=== PATIENT | female | born 1995 | race Caucasian/White ===

== ENCOUNTER 2017-04-03 12:32 | Emergency (ER) | payer MEDICAID, SELFPAY ==
[~2017-04-03] VITALS: Ht 162.6 cm; Wt 64.8 kg
[2017-04-03 12:33] VITALS: BP 113/60
[2017-04-03] MEDS ORDERED: PRENTAB31 PO (14:42)
== END 2017-04-03 14:44 | disposition home or self-care (01) ==
LOC: M ED 12:32
DX: Z32.01 Encounter for pregnancy test, result positive (principal)

== ENCOUNTER → 2017-04-20 | Outpatient (CLI) | payer MEDICAID ==
[~2017-04-20] MED LIST: PRENTAB31 PO; PRENTAB53 PO
[2017-04-20 18:50] LABS: BASO % 0.4 % (0.0-1.0); EOS # 0.2 K/mm3 (0.0-0.50); EOS % 1.7 % (0.0-3.0); LARGE UNSTAINED CELL # 0.1 K/mm3 (0.0-0.4); LARGE UNSTAINED CELL % 1.2 % (0.0-4.0); LYMPH # 2.3 K/mm3 (1.5-6.5); LYMPH % 22.3 % (24.0-44.0); MEAN CORPUSCULAR HEMOGLOBIN 30.6 pg (27.0-33.0); MEAN CORPUSCULAR HGB CONC 34.2 g/dl (32.0-36.5); MEAN CORPUSCULAR VOLUME 89.3 fl (80.0-96.0); MONO # 0.3 K/mm3 (0.0-0.8); MONO % 3.5 % (0.0-5.0); NEUTROPHILS # 6.8 K/mm3 (1.8-7.7); NEUTROPHILS % 70.8 % (36.0-66.0); PLATELET COUNT, AUTOMATED 310 k/mm3 (150-450); RED CELL DISTRIBUTION WIDTH 12.8 % (11.5-14.5); WHITE BLOOD COUNT 9.6 K/mm3 (4.0-10.0)
[2017-04-22 09:51] LABS: HBsAg Prenatal NEGATIVE (NEGATIVE)
== END ==
LOC: M LAB 17:07
PROVIDERS: ATTEND Advanced Practice Midwife
DX: Z34.81 Encounter for supervision of other normal pregnancy, first trimester (principal); Z36 Encounter for antenatal screening of mother

== ENCOUNTER → 2017-04-21 | Outpatient (REF) | payer MEDICAID | LOC: M LABSMT 17:09 | PROVIDERS: ATTEND Advanced Practice Midwife | DX: N91.1 Secondary amenorrhea (principal) ==

== ENCOUNTER → 2017-04-25 | Outpatient (CLI) | payer MEDICAID | LOC: M LAB 16:25 | PROVIDERS: ATTEND Advanced Practice Midwife | DX: N91.1 Secondary amenorrhea (principal) ==

== ENCOUNTER → 2017-04-28 | Outpatient (CLI) | payer MEDICAID | LOC: M LAB 16:37 | PROVIDERS: ATTEND Advanced Practice Midwife | DX: O02.1 Missed abortion (principal) ==

== ENCOUNTER 2017-05-17 23:46 | Emergency (ER) | payer MEDICAID ==
[~2017-05-17] VITALS: Ht 162.6 cm; Wt 61.3 kg
[2017-05-17 23:46] VITALS: BP 116/76
[~2017-05-17 23:46] MED LIST changes: -PRENTAB53 PO
[2017-05-18 02:04] LABS: BASO % 0.3 % (0.0-1.0); EOS # 0.1 K/mm3 (0.0-0.50); EOS % 0.5 % (0.0-3.0); LARGE UNSTAINED CELL # 0.1 K/mm3 (0.0-0.4); LARGE UNSTAINED CELL % 0.9 % (0.0-4.0); LYMPH # 1.9 K/mm3 (1.5-6.5); LYMPH % 17.8 % (24.0-44.0); MEAN CORPUSCULAR HEMOGLOBIN 30.5 pg (27.0-33.0); MEAN CORPUSCULAR VOLUME 89.5 fl (80.0-96.0); MONO # 0.2 K/mm3 (0.0-0.8); MONO % 2.3 % (0.0-5.0); NEUTROPHILS # 8.5 K/mm3 (1.8-7.7); NEUTROPHILS % 78.2 % (36.0-66.0); PLATELET COUNT, AUTOMATED 284 k/mm3 (150-450); RED CELL DISTRIBUTION WIDTH 12.5 % (11.5-14.5); WHITE BLOOD COUNT 10.8 K/mm3 (4.0-10.0)
--- NOTE | 2017-05-18 02:10 | REPUSA ---
CLINICAL HISTORY: Bleeding. TECHNIQUE: Endovaginal ultrasound of the pelvis was performed. FINDINGS: The uterus measures 7.9x3.8x4.6 cm. Thickened endometrium measuring 21 mm. Gestational sac in the lower uterine segment measuring 7.4 mm which corresponds to an estimated gesta tional age of 5 weeks and 3 days. The pole measures 2.2 mm which corresponds to an estimated gestational age of 5 weeks and 5 day s. Absent cardiac activity. The right ovary measures 2.7x2.3x2.6 cm. The left ovary measures 2.7x1.6x2.4 cm. IMPRESSION: demise. The pole in the gestational sac are in the lower uterine segment.
== END 2017-05-18 02:46 | disposition home or self-care (01) ==
LOC: M ED 23:46
DX: O03.4 Incomplete spontaneous abortion without complication (principal); O99.330 Smoking (tobacco) complicating pregnancy, unspecified trimester; Z79.899 Other long term (current) drug therapy

== ENCOUNTER 2017-08-03 11:13 | Emergency (ER) | payer MEDICAID, OTHER ==
[~2017-08-03] VITALS: Ht 162.6 cm; Wt 62.3 kg
[2017-08-03 13:21] LABS: BASO % 0.3 % (0.0-1.0); IMMATURE GRANULOCYTE % 0.4 % (0-0); LYMPH # 0.8 10^3/uL (1.5-6.5); LYMPH % 9.6 % (24.0-44.0); MEAN CORPUSCULAR HEMOGLOBIN 27.9 pg (27.0-33.0); MEAN CORPUSCULAR HGB CONC 32.5 g/dl (32.0-36.5); MEAN CORPUSCULAR VOLUME 85.9 fl (80.0-96.0); MONO # 0.2 10^3/uL (0.0-0.8); MONO % 2.4 % (0.0-5.0); NEUTROPHILS % 87.3 % (36.0-66.0); PLATELET COUNT, AUTOMATED 293 10^3/uL (150-450)
[2017-08-03] MEDS ORDERED: PROMETHAZINE INJ 25 MG/ML VIAL (J2550) IV ONE (13:30)
[2017-08-03] MEDS ORDERED: NS 1,000 ML IV ONE (13:30)
[2017-08-03 13:37] LABS: CONTROL LINE HCG INT CTR LINE PRESENT
[2017-08-03 13:47] LABS: ALBUMIN 4.1 GM/DL (3.2-5.2); ALBUMIN/GLOBULIN RATIO 0.89 (1.00-1.93); ALKALINE PHOSPHATASE 59 U/L (45-117); ALT/SGPT 19 U/L (12-78); ANION GAP 7 MEQ/L (8-16); AST/SGOT 11 U/L (7-37); BILIRUBIN,TOTAL 0.5 MG/DL (0.2-1.0); BLOOD UREA NITROGEN 5 MG/DL (7-18); CALCIUM LEVEL 9.5 MG/DL (8.5-10.1); CARBON DIOXIDE LEVEL 25 MEQ/L (21-32); CHLORIDE LEVEL 104 MEQ/L (98-107); CREATININE FOR GFR 0.56 MG/DL (0.55-1.02); GLOMERULAR FILTRATION RATE > 60.0 (>60); GLUCOSE, FASTING 96 MG/DL (70-105); POTASSIUM SERUM 3.7 MEQ/L (3.5-5.1); SODIUM LEVEL 136 MEQ/L (136-145); TOTAL PROTEIN 8.7 GM/DL (6.4-8.2)
[2017-08-03] MEDS ORDERED: PRENTAB53 PO (14:19)
[2017-08-03 14:29] VITALS: BP 107/56
== END 2017-08-03 14:34 | disposition home or self-care (01) ==
LOC: M ED 11:13
DX: O99.89 Other specified diseases and conditions complicating pregnancy, childbirth and the puerperium (principal); R10.9 Unspecified abdominal pain; O21.9 Vomiting of pregnancy, unspecified; O99.619 Diseases of the digestive system complicating pregnancy, unspecified trimester; K58.9 Irritable bowel syndrome, unspecified; O09.299 Supervision of pregnancy with other poor reproductive or obstetric history, unspecified trimester; O99.330 Smoking (tobacco) complicating pregnancy, unspecified trimester; F17.210 Nicotine dependence, cigarettes, uncomplicated; Z3A.00 Weeks of gestation of pregnancy not specified

== ENCOUNTER 2017-08-15 02:18 | Emergency (ER) | payer OTHER ==
[~2017-08-15] VITALS: Ht 162.6 cm; Wt 60.0 kg
[~2017-08-15 02:18] MED LIST changes: +PRENTAB53 PO
[2017-08-15 07:44] LABS: BASO % 0.4 % (0.0-1.0); EOS % 0.5 % (0.0-3.0); IMMATURE GRANULOCYTE % 0.4 % (0-0); MEAN CORPUSCULAR HGB CONC 32.7 g/dl (32.0-36.5); MEAN CORPUSCULAR VOLUME 85.8 fl (80.0-96.0); MONO # 0.3 10^3/uL (0.0-0.8); MONO % 3.4 % (0.0-5.0); NEUTROPHILS # 5.7 10^3/uL (1.8-7.7); NEUTROPHILS % 70.3 % (36.0-66.0); PLATELET COUNT, AUTOMATED 287 10^3/uL (150-450); RED CELL DISTRIBUTION WIDTH 14.1 % (11.5-14.5); WHITE BLOOD COUNT 8.1 10^3/uL (4.0-10.0)
--- NOTE | 2017-08-15 09:26 | REP ---
Clinical: Vaginal bleeding. Technique: Transabdominal and transvaginal first trimester obstetrical ultrasound with color Doppler evaluation. Comparison: 05/18/2017. Findings: Ultrasound examination demonstrates a single live early intrauterine . CRL of 2.9 cm corresponds to 9 weeks 5 days gestational age with estimated date of delivery 2017. heart rate equals 160 beats per minute. Maternal uterus measures 10.0 x 4.8 x 6.9 cm. Left maternal ovary measures 2.2 x 1.3 x 1.6 cm; RI = 0.60. Right maternal ovary measures 3.3 x 2.3 x 2.2 cm and includes 2.2 cm corpus luteal cyst; RI = 0.55. No significant fluid fluid or adnexal mass lesion. Impression: Single live early intrauterine at 9 weeks 5 days gestational age. Complete anatomical assessment should be performed at 19-20 weeks. Signed by Brandon Baxter MD 08/15/2017 09:18 A
[2017-08-15 10:46] VITALS: BP 127/56
== END 2017-08-15 10:49 | disposition home or self-care (01) ==
LOC: M ED 02:18
DX: O20.0 Threatened abortion (principal); Z3A.00 Weeks of gestation of pregnancy not specified

== ENCOUNTER → 2017-08-30 | Outpatient (CLI) | payer OTHER ==
[2017-08-30 19:36] LABS: BASO % 0.4 % (0.0-1.0); EOS % 0.3 % (0.0-3.0); IMMATURE GRANULOCYTE % 0.3 % (0-0); LYMPH # 2.1 10^3/uL (1.5-6.5); LYMPH % 23.2 % (24.0-44.0); MEAN CORPUSCULAR HEMOGLOBIN 27.7 pg (27.0-33.0); MEAN CORPUSCULAR HGB CONC 32.3 g/dl (32.0-36.5); MEAN CORPUSCULAR VOLUME 85.8 fl (80.0-96.0); MONO # 0.3 10^3/uL (0.0-0.8); NEUTROPHILS # 6.7 10^3/uL (1.8-7.7); NEUTROPHILS % 72.8 % (36.0-66.0); PLATELET COUNT, AUTOMATED 325 10^3/uL (150-450); RED CELL DISTRIBUTION WIDTH 14.6 % (11.5-14.5); WHITE BLOOD COUNT 9.2 10^3/uL (4.0-10.0)
[2017-08-31 10:45] LABS: HBsAg Prenatal NEGATIVE (NEGATIVE)
== END ==
LOC: M SMT 14:36
PROVIDERS: ATTEND Obstetrics & Gynecology
DX: Z34.81 Encounter for supervision of other normal pregnancy, first trimester (principal); Z3A.11 11 weeks gestation of pregnancy

== ENCOUNTER → 2017-09-09 | Outpatient (CLI) | payer OTHER ==
--- NOTE | 2017-09-09 18:33 | REP ---
OB ULTRASOUND: Real-time sonographic evaluation of the gravid uterus is performed utilizing transabdominal and endovaginal technique. There is a single living intrauterine gestation. Estimated gestational age is 12 weeks 6 days based on crown rump length of 66 mm, EDC 03/18/2018. heart rate is 161 beats per minute. There is a small subchorionic hemorrhage measuring 3.2 x 0.6 x 4.2 cm. The tip of the placenta appears to lie 1.3 cm from the cervix, somewhat low lying. Followup recommended. Blood flow is seen in the right ovary with duplex Doppler evaluation, with no torsion. Signed by Layton Rodriguez MD 09/12/2017 05:53 P
== END ==
LOC: M RAD 16:04
PROVIDERS: ATTEND Advanced Practice Midwife
DX: O20.8 Other hemorrhage in early pregnancy (principal); Z3A.12 12 weeks gestation of pregnancy

== ENCOUNTER → 2017-09-27 | Outpatient (CLI) | payer OTHER | LOC: M SMT 11:30 | DX: Z36.9 Encounter for antenatal screening, unspecified (principal) | CPT/HCPCS: 36415 ==

== ENCOUNTER → 2017-10-13 | Outpatient (CLI) | payer OTHER | LOC: M RAD 08:25 | DX: Z36.89 Encounter for other specified antenatal screening (principal); Z3A.18 18 weeks gestation of pregnancy | CPT/HCPCS: 76817 ==

== ENCOUNTER → 2017-11-03 | Outpatient (CLI) | payer OTHER | LOC: M RAD 07:42 | DX: Z36.9 Encounter for antenatal screening, unspecified (principal); Z3A.21 21 weeks gestation of pregnancy | CPT/HCPCS: 76816 ==

== ENCOUNTER → 2017-12-22 | Outpatient (CLI) | payer OTHER ==
[2017-12-22 12:08] LABS: HEMATOCRIT 32.3 % (36.0-47.0); HEMOGLOBIN 10.2 g/dl (12.0-16.0); MEAN CORPUSCULAR HEMOGLOBIN 28.5 pg (27.0-33.0); MEAN CORPUSCULAR HGB CONC 31.6 g/dl (32.0-36.5); MEAN CORPUSCULAR VOLUME 90.2 fl (80.0-96.0); PLATELET COUNT, AUTOMATED 319 10^3/uL (150-450); RED BLOOD COUNT 3.58 10^6/uL (4.00-5.40); RED CELL DISTRIBUTION WIDTH 14.2 % (11.5-14.5); WHITE BLOOD COUNT 11.3 10^3/uL (4.0-10.0)
[2017-12-22 12:31] LABS: GLUCOSE CHALLENGE TEST 1 HOUR 108 MG/DL (LESS THAN 140)
== END ==
LOC: M LAB 10:22
DX: Z36.89 Encounter for other specified antenatal screening (principal); Z3A.00 Weeks of gestation of pregnancy not specified
CPT/HCPCS: 82950

== ENCOUNTER → 2018-01-13 | Outpatient (CLI) | payer OTHER | LOC: M RAD 13:37 | DX: Z34.82 Encounter for supervision of other normal pregnancy, second trimester (principal) | CPT/HCPCS: 76816 ==

== ENCOUNTER → 2018-02-16 | Outpatient (REF) | payer OTHER | LOC: M LAB REF 17:12 | DX: Z34.83 Encounter for supervision of other normal pregnancy, third trimester (principal) ==

== ENCOUNTER 2018-02-24 11:45 | Outpatient (CLI) | payer OTHER | END 2018-02-24 15:06 | disposition home or self-care (01) | LOC: M LDO 11:45 | DX: O32.1XX1 Maternal care for breech presentation, fetus 1 (principal); Z3A.37 37 weeks gestation of pregnancy | CPT/HCPCS: 76815 ==

== ENCOUNTER 2018-02-27 03:58 | Inpatient (IN) | payer OTHER ==
[2018-02-27] MEDS ORDERED: ceFAZolin 2 GM/D5W 50 ML IV BAG (J0690 PER 500MG) As Ordered (05:19)
[2018-02-27] MEDS ORDERED: BICITRA 30ML SOLN UDC As Ordered (05:19)
[2018-02-27] MEDS: LACTATED RINGER'S 1000 ML IV (05:24)
[2018-02-27] MEDS: AZITHROMYCIN INJ 500 MG, VIAL MATE ADAPTER 1 EACH in D5W 250 ML IV (05:26)
[2018-02-27] MEDS: BICITRA 30ML SOLN UDC PO (05:26)
[2018-02-27 05:28] LABS: HEMATOCRIT 31.6 % (36.0-47.0); HEMOGLOBIN 9.8 g/dl (12.0-15.5); MEAN CORPUSCULAR HEMOGLOBIN 26.6 pg (27.0-33.0); MEAN CORPUSCULAR VOLUME 85.9 fl (80.0-96.0); PLATELET COUNT, AUTOMATED 295 10^3/uL (150-450); RED BLOOD COUNT 3.68 10^6/uL (4.00-5.40); RED CELL DISTRIBUTION WIDTH 16.5 % (11.5-14.5); WHITE BLOOD COUNT 14.3 10^3/uL (4.0-10.0)
[2018-02-27] MEDS: LR 1,000 ML IV ×6 (05:38→19:31)
[2018-02-27] MEDS ORDERED: MORPHINE PRES-FREE INJ 10 MG/10 ML VIAL (J2274) As Ordered (05:43)
[2018-02-27] MEDS ORDERED: OXYTOCIN INJ 10 UNITS/ML VIAL (J2590) As Ordered ×4 (05:48→06:37)
[2018-02-27] MEDS ORDERED: NALBUPHINE HCL 10 MG/ML AMP (J2300) IV (05:59)
[2018-02-27] MEDS ORDERED: METOCLOPRAMIDE INJ 10MG/2ML VIAL (J2765) IV ×2 (05:59→07:45)
[2018-02-27] MEDS ORDERED: NALOXONE INJ 0.4 MG/1 ML VIAL (J2310) IV ×2 (05:59)
[2018-02-27] MEDS ORDERED: ONDANSETRON 4MG/2ML VIAL (J2405) IV ×3 (05:59→07:45)
[2018-02-27] MEDS ORDERED: PHENYLephrine HCL 500 MCG/5 ML (100MCG/ML) SYRINGE (J2370) As Ordered ×2 (06:12→06:52)
[2018-02-27] MEDS ORDERED: ePHEDrine SULFATE 25 MG/5 ML(5MG/ML) SYRINGE As Ordered (06:12)
[2018-02-27] MEDS ORDERED: ONDANSETRON 4MG/2ML VIAL (J2405) As Ordered (06:18)
[2018-02-27] MEDS ORDERED: KETOROLAC 60 MG/2 ML VIAL (J1885) As Ordered (06:18)
[2018-02-27] MEDS: OXYTOCIN DRIP 30 UNITS in APPROPRIATE DILUENT 1 EA IV (07:32)
[2018-02-27] MEDS ORDERED: PERCOCET 5MG/325MG TAB PO (07:45)
[2018-02-27] MEDS ORDERED: MEPERIDINE INJ 25 MG/ML VIAL (J2175) IV (07:45)
[2018-02-27] MEDS ORDERED: RHOGAM 300 MCG (1500 IU) INJ (J2790) IM (07:45)
[2018-02-27] MEDS ORDERED: PROMETHAZINE 25 MG TAB PO (07:45)
[2018-02-27] MEDS ORDERED: MEASLES,MUMPS,RUBELLA VACCINE INJ (MMR-II) (90707) SC (07:45)
[2018-02-27] MEDS ORDERED: fentaNYL 100 MCG/2 ML INJECTION (J3010) IV (07:45)
[2018-02-27] MEDS: DOCUSATE SODIUM 100 MG CAP PO ×2 (09:00→21:00)
[2018-02-27] MEDS: PRENATAL VITAMINS CHEWABLE TABLET PO (09:00)
[2018-02-27] MEDS: KETOROLAC 30 MG/ML VIAL (J1885) IV ×3 (11:44→23:59)
[2018-02-27] MEDS: PERCOCET 5MG/325MG TAB PO ×2 (16:43→23:01)
[2018-02-28] MEDS: PERCOCET 5MG/325MG TAB PO ×3 (06:31→22:44)
[2018-02-28 06:47] LABS: MEAN CORPUSCULAR HEMOGLOBIN 26.9 pg (27.0-33.0); MEAN CORPUSCULAR HGB CONC 31.4 g/dl (32.0-36.5); MEAN CORPUSCULAR VOLUME 85.7 fl (80.0-96.0); PLATELET COUNT, AUTOMATED 205 10^3/uL (150-450); RED BLOOD COUNT 2.45 10^6/uL (4.00-5.40); RED CELL DISTRIBUTION WIDTH 17.2 % (11.5-14.5); WHITE BLOOD COUNT 15.1 10^3/uL (4.0-10.0)
[2018-02-28 06:54] LABS: HEMOGLOBIN 6.6 g/dl (12.0-15.5)
[2018-02-28] MEDS: LR 1,000 ML IV ×3 (07:32→23:32)
[2018-02-28] MEDS: ACETAMINOPHEN 500 MG TAB PO (08:29)
[2018-02-28] MEDS: diphenhydrAMINE 50 MG CAP PO (08:29)
[2018-02-28] MEDS: IBUPROFEN 800 MG TAB PO ×2 (08:29→16:15)
[2018-02-28] MEDS: DOCUSATE SODIUM 100 MG CAP PO ×2 (08:29→21:00)
[2018-02-28 08:37] LABS: IMMEDIATE SPIN CROSSMATCH 1 2
[2018-02-28] MEDS: PRENATAL VITAMINS CHEWABLE TABLET PO (09:00)
[2018-02-28 17:23] LABS: HEMATOCRIT 27.2 % (36.0-47.0); MEAN CORPUSCULAR HEMOGLOBIN 27.7 pg (27.0-33.0); MEAN CORPUSCULAR HGB CONC 33.1 g/dl (32.0-36.5); MEAN CORPUSCULAR VOLUME 83.7 fl (80.0-96.0); PLATELET COUNT, AUTOMATED 232 10^3/uL (150-450); RED BLOOD COUNT 3.25 10^6/uL (4.00-5.40); RED CELL DISTRIBUTION WIDTH 16.7 % (11.5-14.5); WHITE BLOOD COUNT 16.2 10^3/uL (4.0-10.0)
[2018-03-01] MEDS: IBUPROFEN 800 MG TAB PO ×3 (01:21→16:00)
[2018-03-01] MEDS: LR 1,000 ML IV ×2 (07:29→15:32)
[2018-03-01] MEDS: PRENATAL VITAMINS CHEWABLE TABLET PO (08:41)
[2018-03-01] MEDS: DOCUSATE SODIUM 100 MG CAP PO (08:41)
== END 2018-03-01 18:25 | disposition home or self-care (01) | DRG 540 ==
LOC: M LDO 03:58 → M LDI 04:57 → M OBS 09:05
PROVIDERS: Advanced Practice Midwife
PROC: 10D00Z1 Extraction of Products of Conception, Low, Open Approach (ICD-10-PCS; principal; 2018-02-27 05:48)
PROC: 30233N1 Transfusion of Nonautologous Red Blood Cells into Peripheral Vein, Percutaneous Approach (ICD-10-PCS; 2018-02-27 05:48)
DX: O64.1XX0 Obstructed labor due to breech presentation, not applicable or unspecified (principal); D64.9 Anemia, unspecified; O99.824 Streptococcus B carrier state complicating childbirth; Z37.0 Single live birth; Z3A.37 37 weeks gestation of pregnancy; Z91.048 Other nonmedicinal substance allergy status; O99.03 Anemia complicating the puerperium

== ENCOUNTER 2018-03-27 14:07 | Emergency (ER) | payer OTHER, SELFPAY ==
[2018-03-27] MEDS: GI COCKTAIL 50ML BTL(HYOSCYAMINE/MAALOX/LIDOCAINE VISCOUS)(1:3:1) PO (17:02)
[2018-03-27] MEDS: ONDANSETRON 4MG/2ML VIAL (J2405) IV (17:02)
[2018-03-27] MEDS: PANTOPRAZOLE 40MG INJ (PROTONIX) (C9113) IV (17:02)
[2018-03-27 17:11] LABS: BASO % 0.5 % (0.0-1.0); EOS # 0.1 10^3/uL (0.0-0.50); EOS % 1.5 % (0.0-3.0); HEMATOCRIT 38.7 % (36.0-47.0); HEMOGLOBIN 12.5 g/dl (12.0-15.5); IMMATURE GRANULOCYTE % 0.4 % (0-3.0); LYMPH # 2.1 10^3/uL (1.5-6.5); LYMPH % 26.7 % (24.0-44.0); MEAN CORPUSCULAR HEMOGLOBIN 27.5 pg (27.0-33.0); MEAN CORPUSCULAR HGB CONC 32.3 g/dl (32.0-36.5); MEAN CORPUSCULAR VOLUME 85.2 fl (80.0-96.0); MONO # 0.3 10^3/uL (0.0-0.8); MONO % 3.9 % (0.0-5.0); NEUTROPHILS # 5.4 10^3/uL (1.8-7.7); PLATELET COUNT, AUTOMATED 284 10^3/uL (150-450); RED BLOOD COUNT 4.54 10^6/uL (4.00-5.40); RED CELL DISTRIBUTION WIDTH 15.9 % (11.5-14.5)
[2018-03-27 17:13] LABS: KETONE, URINE AUTO RFX 1+ mg/dL (NEGATIVE); MUCUS, URINE RFX SMALL (NEGATIVE); NITRITE, URINE AUTO RFX NEGATIVE (NEGATIVE); RBC, URINE AUTO RFX 1 /HPF (0-3); SPECIFIC GRAVITY UR AUTO RFX 1.024 (1.002-1.035); SQUAM EPITHELIAL CELL UR AURFX 4 /HPF (0-6); WBC, URINE AUTO RFX 8 /HPF (0-3)
[2018-03-27 17:18] LABS: LEUKOCYTE ESTERASE UR AUTO RFX TRACE (NEGATIVE)
[2018-03-27 17:34] LABS: CONTROL LINE HCG INT CTR LINE PRESENT; HCG, SERUM QUALITATIVE NEGATIVE (NEGATIVE)
[2018-03-27 17:37] LABS: ALBUMIN 3.9 GM/DL (3.2-5.2); ALBUMIN/GLOBULIN RATIO 0.85 (1.00-1.93); ALKALINE PHOSPHATASE 98 U/L (45-117); ALT/SGPT 123 U/L (12-78); ANION GAP 11 MEQ/L (8-16); AST/SGOT 152 U/L (7-37); BILIRUBIN,TOTAL 1.7 MG/DL (0.2-1.0); BLOOD UREA NITROGEN 9 MG/DL (7-18); CARBON DIOXIDE LEVEL 25 MEQ/L (21-32); CHLORIDE LEVEL 105 MEQ/L (98-107); CREATININE FOR GFR 0.71 MG/DL (0.55-1.30); GLOMERULAR FILTRATION RATE > 60.0 (>60); GLUCOSE, FASTING 88 MG/DL (70-100); LIPASE 103 U/L (73-393); POTASSIUM SERUM 3.7 MEQ/L (3.5-5.1); SODIUM LEVEL 141 MEQ/L (136-145); TOTAL PROTEIN 8.5 GM/DL (6.4-8.2)
[2018-03-27] MEDS: NS 1,000 ML IV (18:15)
[2018-03-27 22:24] LABS: BILIRUBIN,DIRECT 0.8 MG/DL (0.0-0.2)
[2018-03-27 22:59] LABS: ALBUMIN 3.3 GM/DL (3.2-5.2); ALBUMIN/GLOBULIN RATIO 0.87 (1.00-1.93); ALKALINE PHOSPHATASE 81 U/L (45-117); ALT/SGPT 102 U/L (12-78); AST/SGOT 100 U/L (7-37); BILIRUBIN,DIRECT 0.3 MG/DL (0.0-0.2); BILIRUBIN,TOTAL 0.9 MG/DL (0.2-1.0); TOTAL PROTEIN 7.1 GM/DL (6.4-8.2)
[2018-03-27] MEDS: NORCO 5/325MG TABLET (BULK FOR ED) PO (23:26)
== END 2018-03-27 23:27 | disposition home or self-care (01) ==
LOC: M ED 14:07
DX: K80.10 Calculus of gallbladder with chronic cholecystitis without obstruction (principal); Z91.048 Other nonmedicinal substance allergy status
CPT/HCPCS: C9113

== ENCOUNTER 2018-05-30 23:21 | Emergency (ER) | payer MEDICAID, SELFPAY ==
[2018-05-31] MEDS: NS 1,000 ML IV (01:30)
[2018-05-31] MEDS: diphenhydrAMINE INJ 50MG/ML VIAL (J1200) IV (01:40)
[2018-05-31] MEDS: HALOPERIDOL 5 MG/ML VIAL (J1630) IV (01:40)
[2018-05-31] MEDS: MORPHINE 2 MG/ML 1ML SYRINGE (J2270) IV (01:41)
[2018-05-31 01:42] LABS: BASO % 0.5 % (0.0-1.0); EOS # 0.2 10^3/uL (0.0-0.50); EOS % 2.3 % (0.0-3.0); HEMATOCRIT 38.5 % (36.0-47.0); HEMOGLOBIN 12.8 g/dl (12.0-15.5); IMMATURE GRANULOCYTE % 0.2 % (0-3.0); LYMPH # 2.4 10^3/uL (1.5-6.5); LYMPH % 29.6 % (24.0-44.0); MEAN CORPUSCULAR HEMOGLOBIN 28.4 pg (27.0-33.0); MEAN CORPUSCULAR HGB CONC 33.2 g/dl (32.0-36.5); MEAN CORPUSCULAR VOLUME 85.4 fl (80.0-96.0); MONO # 0.4 10^3/uL (0.0-0.8); NEUTROPHILS # 5.1 10^3/uL (1.8-7.7); NEUTROPHILS % 62.4 % (36.0-66.0); PLATELET COUNT, AUTOMATED 312 10^3/uL (150-450); RED BLOOD COUNT 4.51 10^6/uL (4.00-5.40); RED CELL DISTRIBUTION WIDTH 13.9 % (11.5-14.5); WHITE BLOOD COUNT 8.2 10^3/uL (4.0-10.0)
[2018-05-31 02:05] LABS: ALBUMIN 3.9 GM/DL (3.2-5.2); ALKALINE PHOSPHATASE 240 U/L (45-117); ALT/SGPT 616 U/L (12-78); ANION GAP 11 MEQ/L (8-16); AST/SGOT 553 U/L (7-37); BILIRUBIN,DIRECT 1.3 MG/DL (0.0-0.2); BILIRUBIN,TOTAL 2.3 MG/DL (0.2-1.0); BLOOD UREA NITROGEN 7 MG/DL (7-18); CALCIUM LEVEL 9.4 MG/DL (8.5-10.1); CARBON DIOXIDE LEVEL 23 MEQ/L (21-32); CHLORIDE LEVEL 106 MEQ/L (98-107); CREATININE FOR GFR 0.67 MG/DL (0.55-1.30); GLOMERULAR FILTRATION RATE > 60.0 (>60); GLUCOSE, FASTING 102 MG/DL (70-100); POTASSIUM SERUM 4.1 MEQ/L (3.5-5.1); SODIUM LEVEL 140 MEQ/L (136-145); TOTAL PROTEIN 7.8 GM/DL (6.4-8.2)
[2018-05-31 02:32] LABS: LIPASE 32830 U/L (73-393)
[2018-05-31] MEDS: MORPHINE 4 MG/ML 1ML VIAL/SYRINGE (J2270) IV (05:54)
== END 2018-05-31 06:16 | disposition short-term general hospital (02) ==
LOC: M ED 23:21
DX: K85.90 Acute pancreatitis without necrosis or infection, unspecified (principal); K80.50 Calculus of bile duct without cholangitis or cholecystitis without obstruction; K58.9 Irritable bowel syndrome, unspecified; Z91.048 Other nonmedicinal substance allergy status
CPT/HCPCS: J2270

== ENCOUNTER 2018-06-23 07:41 | Day surgery (SDC) | payer MEDICAID ==
[~2018-06-23 07:41] MED LIST changes: +LIDOCAINE 1% MDV 20ML VIAL SQ; +LR 1,000 ML IV; -PRENTAB31 PO; -PRENTAB53 PO
[2018-06-23 08:21] LABS: CONTROL LINE UCG INT CTR LINE PRESENT; URINE PREG TEST NEGATIVE (NEGATIVE)
[2018-06-23] MEDS ORDERED: KETOROLAC 60 MG/2 ML VIAL (J1885) As Ordered (09:00)
[2018-06-23] MEDS ORDERED: dexameTHASONE 4 MG/ML 1ML VIAL (J1100) As Ordered (09:00)
[2018-06-23] MEDS ORDERED: LIDOCAINE 2% INJ 100 MG/5 ML SDV (FOR ANES.) As Ordered (09:00)
[2018-06-23] MEDS ORDERED: PROPOFOL 200 MG/20 ML VIAL As Ordered (09:00)
[2018-06-23] MEDS ORDERED: ROCURONIUM BROMIDE 50 MG/5 ML VIAL As Ordered (09:00)
[2018-06-23] MEDS ORDERED: ONDANSETRON 4MG/2ML VIAL (J2405) As Ordered (09:00)
[2018-06-23] MEDS ORDERED: MIDAZOLAM INJ 2 MG/2 ML VIAL (J2250) As Ordered (09:01)
[2018-06-23] MEDS ORDERED: fentaNYL 250 MCG/5 ML INJECTION (J3010) As Ordered (09:01)
[2018-06-23] MEDS: AMPICILLIN SOD/SULBACTAM SOD 3 GM in D5W MINI-BAG PLUS 100 ML IV (09:46)
[2018-06-23] MEDS: CONRAY-60 60% 50ML VIAL (Q9961) As Ordered (10:50)
[2018-06-23] MEDS: GLUCAGON FOR INJ 1 MG VIAL (J1610) As Ordered (10:54)
[2018-06-23] MEDS ORDERED: GLYCOPYRROLATE INJ 0.2 MG/ML 2 ML VIAL As Ordered ×2 (11:06)
[2018-06-23] MEDS ORDERED: NEOSTIGMINE 10 MG/10 ML VIAL (J2710) As Ordered (11:06)
[2018-06-23] MEDS: LIDOCAINE 1% SDV INJ 30 ML VIAL As Ordered (11:20)
[2018-06-23] MEDS: BUPIVACAINE HCL 0.25% 30 ML VIAL As Ordered (11:20)
[2018-06-23] MEDS: LR 1,000 ML IV (11:34)
[2018-06-23] MEDS ORDERED: NORCO, ANEXSIA 5/325MG TABLET (HYDROcodone/ACETAMINOPHEN) PO (12:00)
[2018-06-23] MEDS ORDERED: KETOROLAC 30 MG/ML VIAL (J1885) IV (12:00)
[2018-06-23] MEDS ORDERED: fentaNYL 100 MCG/2 ML INJECTION (J3010) IV (12:00)
[2018-06-23] MEDS ORDERED: ONDANSETRON 4MG/2ML VIAL (J2405) IV (12:00)
[2018-06-23] MEDS ORDERED: PERCOCET 5MG/325MG TAB PO (12:00)
[2018-06-23] MEDS: ONDANSETRON 4MG/2ML VIAL (J2405) IV (12:07)
[2018-06-23] MEDS: NORCO, ANEXSIA 5/325MG TABLET (HYDROcodone/ACETAMINOPHEN) PO (14:50)
== END 2018-06-23 15:53 | disposition home or self-care (01) ==
LOC: M SDC 07:41
DX: K80.10 Calculus of gallbladder with chronic cholecystitis without obstruction (principal); R94.5 Abnormal results of liver function studies; R01.1 Cardiac murmur, unspecified; K58.9 Irritable bowel syndrome, unspecified; R51 Headache; Z91.09 Other allergy status, other than to drugs and biological substances; Z87.19 Personal history of other diseases of the digestive system; Z72.0 Tobacco use
CPT/HCPCS: 47563

== ENCOUNTER → 2019-04-10 | Outpatient (CLI) | payer OTHER ==
[~2019-04-10] MED LIST changes: +BACT800T5 PO; +COLA100C5 PO; +IBUP80TA PO; +KEFL500C17 PO; -LIDOCAINE 1% MDV 20ML VIAL SQ; -LR 1,000 ML IV; +MAPA500T2 PO; +PERC5TAB12 PO; +PREN29TA4 PO; +PRENTAB31 PO; +PRENTAB53 PO; +ZOFR4TAB14 PO
[2019-04-10 20:04] LABS: CHLAMYDIA DNA AMPLIFICATION NEGATIVE (NEGATIVE); GC DNA AMPLIFICATION NEGATIVE (NEGATIVE)
[2019-04-11 11:47] LABS: HEPATITIS A ANTIBODY IGM NEGATIVE (NEGATIVE); HEPATITIS B CORE ANTIBODY IGM NEGATIVE (NEGATIVE); HEPATITIS B SURFACE ANTIGEN NEGATIVE (NEGATIVE); HEPATITIS C VIRUS ABY INDEX 0.1 INDEX (<0.8); HIV 1&2 SCREEN CENTAUR NEGATIVE (NEGATIVE)
== END ==
LOC: M SMT 15:10
PROVIDERS: ATTEND Advanced Practice Midwife
DX: Z12.4 Encounter for screening for malignant neoplasm of cervix (principal); Z11.3 Encounter for screening for infections with a predominantly sexual mode of transmission

== ENCOUNTER 2019-05-01 14:11 | Emergency (ER) | payer OTHER ==
[~2019-05-01] VITALS: Ht 162.6 cm; Wt 64.1 kg
[~2019-05-01 14:11] MED LIST changes: -BACT800T5 PO; -KEFL500C17 PO; -PREN29TA4 PO
[2019-05-01 14:12] VITALS: BP 109/58
[2019-05-01] MEDS ORDERED: BACT800T5 PO (14:33)
== END 2019-05-01 15:05 | disposition home or self-care (01) ==
LOC: M ED 14:11
DX: L02.416 Cutaneous abscess of left lower limb (principal); L03.116 Cellulitis of left lower limb; Z86.14 Personal history of Methicillin resistant Staphylococcus aureus infection; Z91.048 Other nonmedicinal substance allergy status

== ENCOUNTER 2019-09-02 10:27 | Emergency (ER) | payer OTHER ==
[~2019-09-02] VITALS: Ht 162.6 cm; Wt 56.1 kg
[~2019-09-02 10:27] MED LIST changes: +BACT800T5 PO
[2019-09-02] MEDS ORDERED: PREN29TA4 PO (10:52)
[2019-09-02 11:04] LABS: BASO % 0.7 % (0.0-1.0); EOS # 0.1 10^3/uL (0.0-0.5); HEMATOCRIT 40.4 % (36.0-47.0); HEMOGLOBIN 12.9 g/dl (12.0-15.5); LYMPH # 1.7 10^3/uL (1.5-5.0); LYMPH % 27.6 % (24.0-44.0); MEAN CORPUSCULAR HEMOGLOBIN 29.5 pg (27.0-33.0); MEAN CORPUSCULAR HGB CONC 31.9 g/dl (32.0-36.5); MEAN CORPUSCULAR VOLUME 92.4 fl (80.0-96.0); MONO # 0.3 10^3/uL (0.0-0.8); MONO % 4.6 % (0.0-5.0); NEUTROPHILS % 65.6 % (36.0-66.0); PLATELET COUNT, AUTOMATED 260 10^3/uL (150-450); RED BLOOD COUNT 4.37 10^6/uL (4.00-5.40); WHITE BLOOD COUNT 6.1 10^3/uL (4.0-10.0)
[2019-09-02 11:50] LABS: ALBUMIN 3.7 GM/DL (3.2-5.2); ALT/SGPT 17 U/L (12-78); BILIRUBIN,DIRECT 0.2 MG/DL (0.0-0.2); BILIRUBIN,TOTAL 0.5 MG/DL (0.2-1.0); BLOOD UREA NITROGEN 8 MG/DL (7-18); CALCIUM LEVEL 9.2 MG/DL (8.5-10.1); CARBON DIOXIDE LEVEL 25 MEQ/L (21-32); CHLORIDE LEVEL 105 MEQ/L (98-107); CREATININE FOR GFR 0.71 MG/DL (0.55-1.30); GLOMERULAR FILTRATION RATE > 60.0 (>60); GLUCOSE, FASTING 107 MG/DL (70-100); HCG, SERUM QUANTITATIVE 65145 MIU/ML; LIPASE 62 U/L (73-393); SODIUM LEVEL 136 MEQ/L (136-145); TOTAL PROTEIN 8.2 GM/DL (6.4-8.2)
--- NOTE | 2019-09-02 12:21 | REP ---
FIRST TRIMESTER OB AND ENDOVAGINAL PROBE ULTRASOUND: 09/02/2019. Clinical history: Vaginal bleeding. Supervision of . By LMP, she is 7 weeks 4 days with EDC 04/16/2020. Findings: No prior study. Both transabdominal and endovaginal probes were utilized for this examination. The bladder is empty. Uterus appears retroverted. There is a gestational sac in the fundus. Within the sac is a yolk sac and a pole with a crown-rump length of 1.38 cm which corresponds to 7 weeks 5 days. heart activity noted at 157 bpm. There is no subchorionic hemorrhage noted about the sac. On EV probe, the left adnexa shows the ovary measuring 2.7 x 1.8 x 2.2 cm. Centrally there appears to be a collapsing hypoechoic focus suggesting a hemorrhagic corpus luteum. There are prominent pelvic veins adjacent to that ovary seen on color flow. Doppler shows low resistance flow pattern in the left ovary with resistive index 0.42. Right ovary is seen and measures 2.3 x 1.6 x 2 2 cm. It also shows low resistance flow pattern on Doppler tracing with resistive index of 0.52. However, in the right adnexa is a separate structure 5.5 x 4.3 x 2.7. It is hypoechoic solid in its periphery. It has a central hypoechoic elongated zone with internal echoes suggesting complex fluid. On color-flow, there is extensive color throughout the solid portion of the lesion and the Doppler tracing shows resistive index of 0.5 in this adnexal lesion. The patient related that she had a torn vaginal wall, the EV probe was therefore introduced very slowly and with some discomfort for the patient according to the technologist. However, during the examination, there was no tenderness on examination of the right adnexa nor was there tenderness to direct palpation overlying it. I do not see pelvic free fluid. Impression: 1. Gestational sac in the fundus with a pole showing crown-rump length consistent with 7 weeks 5 days and EDC 04/15/2020. Heart rate 157 bpm. No subchorionic bleed. 2. Left ovary with normal blood flow and a complex follicle or corpus luteum, likely hemorrhagic. No free fluid. 3. The right ovary is well seen and shows low resistance flow pattern on Doppler and no adjacent free fluid. However, in the right adnexa is a separate structure measuring 5.5 x 4.3 x 2.7 cm. It is elongated and with solid echogenic appearance and central complex fluid representing adnexal mass of uncertain origin. This could be tubo-ovarian abscess or other tubal mass, adnexal mass of other origin or other pelvic lesion. It has abundant color flow and low resistance pattern on Doppler and is separate from the ovary. It was not tender on EV probe or direct palpation over the right side of the pelvis. It did not show peristalsis. [facility] [employer] referral recommended. Electronically Signed by Rock Mendoza MD 09/02/2019 05:10 P
[2019-09-02 13:47] LABS: CHLAMYDIA DNA AMPLIFICATION NEGATIVE (NEGATIVE); GC DNA AMPLIFICATION NEGATIVE (NEGATIVE)
[2019-09-02] MEDS ORDERED: KEFL500C17 PO (14:41)
[2019-09-02 15:00] VITALS: BP 117/78
--- NOTE | 2019-09-03 16:54 | ED PDOC ---
Post-Departure Follow-Up dr glynn and [facility] faxed fomral report of 1st trimester us for fu Tosha Elaine MD Sep 03, 2019 16:54
[2019-09-06 00:07] LABS: HSV IgM TYPES 1&2 1.08 Ratio (0.00-0.90)
== END 2019-09-02 15:02 | disposition home or self-care (01) ==
LOC: M ED 10:27
DX: O34.81 Maternal care for other abnormalities of pelvic organs, first trimester (principal); N83.202 Unspecified ovarian cyst, left side; O99.281 Endocrine, nutritional and metabolic diseases complicating pregnancy, first trimester; E27.9 Disorder of adrenal gland, unspecified; O23.41 Unspecified infection of urinary tract in pregnancy, first trimester; O26.851 Spotting complicating pregnancy, first trimester; O26.891 Other specified pregnancy related conditions, first trimester; Z3A.01 Less than 8 weeks gestation of pregnancy; R11.0 Nausea; O99.341 Other mental disorders complicating pregnancy, first trimester; F33.9 Major depressive disorder, recurrent, unspecified; Z91.09 Other allergy status, other than to drugs and biological substances; Z79.899 Other long term (current) drug therapy

== ENCOUNTER → 2019-10-31 | Outpatient (CLI) | payer OTHER ==
[~2019-10-31] MED LIST changes: +KEFL500C17 PO; +PREN29TA4 PO
[2019-10-31 12:38] LABS: BASO % 0.5 % (0.0-1.0); EOS # 0.1 10^3/uL (0.0-0.5); EOS % 0.8 % (0.0-3.0); HEMATOCRIT 41.1 % (36.0-47.0); HEMOGLOBIN 12.7 g/dl (12.0-15.5); LYMPH # 1.9 10^3/uL (1.5-5.0); LYMPH % 25.7 % (24.0-44.0); MEAN CORPUSCULAR HEMOGLOBIN 29.3 pg (27.0-33.0); MEAN CORPUSCULAR HGB CONC 30.9 g/dl (32.0-36.5); MEAN CORPUSCULAR VOLUME 94.9 fl (80.0-96.0); MONO # 0.2 10^3/uL (0.0-0.8); MONO % 2.9 % (0.0-5.0); NEUTROPHILS # 5.1 10^3/uL (1.5-8.5); NEUTROPHILS % 69.8 % (36.0-66.0); PLATELET COUNT, AUTOMATED 285 10^3/uL (150-450); RED BLOOD COUNT 4.33 10^6/uL (4.00-5.40); WHITE BLOOD COUNT 7.4 10^3/uL (4.0-10.0)
[2019-10-31 13:30] LABS: HEPATITIS C VIRUS ABY INDEX 0.1 INDEX (<0.8); HIV 1&2 SCREEN CENTAUR NEGATIVE (NEGATIVE); RUBELLA IgG QUALITATIVE EQUIVOCAL (IMMUNE)
[2019-10-31 15:17] LABS: CHLAMYDIA DNA AMPLIFICATION NEGATIVE (NEGATIVE); GC DNA AMPLIFICATION NEGATIVE (NEGATIVE)
== END ==
LOC: M PLALAB 09:39
PROVIDERS: ATTEND Obstetrics & Gynecology
DX: Z34.92 Encounter for supervision of normal pregnancy, unspecified, second trimester (principal)

== ENCOUNTER → 2019-12-11 | Outpatient (REF) | payer OTHER | LOC: M PLALAB 14:23 | PROVIDERS: ATTEND Obstetrics & Gynecology | DX: Z34.92 Encounter for supervision of normal pregnancy, unspecified, second trimester (principal) ==

== ENCOUNTER → 2020-01-07 | Outpatient (CLI) | payer OTHER ==
--- NOTE | 2020-01-08 04:09 | REP ---
Clinical: Anatomical evaluation. Comparison: 09/02/2019 . Findings: Examination demonstrates a single live intrauterine in breech presentation. motion is identified by technologist. Placenta is noted posterior and grade zero without evidence for placenta previa or abruption. Amniotic fluid volume is normal. Cervix measures 3.0 cm in length and appears closed. No evidence for nuchal cord. Gestational age by LMP 25 weeks 5 days with MARICRUZ 04/16/2020 . Gestational age by current measurements 25 weeks 5 days with MARICRUZ 04/16/2020 . FHR equals 152 beats per minute. BPD 6.3 cm 25 weeks 4 days HC 23.1 cm 25 weeks 1 day AC 22.0 cm 26 weeks 3 days FL 5.0 cm 27 weeks 0 days HL 4.5 cm 26 weeks 5 days HC/AC ratio 1.05 Estimated weight 938 grams ( 62nd percentile). Anatomical assessment demonstrates normal structures including cranium, choroid plexus, cavum, cerebellum/posterior fossa, facial features, lungs, four-chamber heart/ left ventricular outflow tract, diaphragm, stomach, cord insertion/three-vessel cord, kidneys/bladder, spine, and extremities. Impression: Single live intrauterine in breech presentation. With the exception of visualizing the right ventricular outflow tract, anatomical assessment is complete and normal.
== END ==
LOC: M WHC 13:26
PROVIDERS: ATTEND Obstetrics & Gynecology
DX: O32.1XX0 Maternal care for breech presentation, not applicable or unspecified (principal); Z3A.25 25 weeks gestation of pregnancy

== ENCOUNTER → 2020-01-16 | Outpatient (CLI) | payer OTHER ==
--- NOTE | 2020-01-16 17:59 | REP ---
Clinical: Anatomical evaluation. Comparison: 01/07/2020 . Findings: Examination demonstrates a single live intrauterine in cephalic presentation. motion is identified by technologist. Placenta is noted posterior and grade zero without evidence for placenta previa or abruption. Amniotic fluid volume is normal. Cervix measures 3.0 cm in length and appears closed. No evidence for nuchal cord. Gestational age by current measurements 26 weeks 4 days with MARICRUZ 04/19/2020 . FHR equals 150 beats per minute. Estimated weight 1001 grams ( 51st percentile). Anatomical assessment demonstrates normal structures including right cardiac ventricular outflow tract. Impression: Single live intrauterine in cephalic presentation. In conjunction with prior examination anatomical assessment is complete and normal.
== END ==
LOC: M WHC 12:57
PROVIDERS: ATTEND Specialist
DX: Z36.89 Encounter for other specified antenatal screening (principal); Z3A.26 26 weeks gestation of pregnancy

== ENCOUNTER → 2020-02-13 | Outpatient (REF) | payer OTHER ==
[2020-02-13 14:06] LABS: HEMATOCRIT 32.5 % (36.0-47.0); HEMOGLOBIN 10.4 g/dl (12.0-15.5); MEAN CORPUSCULAR HEMOGLOBIN 29.7 pg (27.0-33.0); MEAN CORPUSCULAR VOLUME 92.9 fl (80.0-96.0); PLATELET COUNT, AUTOMATED 311 10^3/uL (150-450); WHITE BLOOD COUNT 9.3 10^3/uL (4.0-10.0)
== END ==
LOC: M PLALAB 10:29
PROVIDERS: ATTEND Obstetrics & Gynecology
DX: Z34.92 Encounter for supervision of normal pregnancy, unspecified, second trimester (principal)

== ENCOUNTER → 2020-02-27 | Outpatient (REF) | payer OTHER | LOC: M PLALAB 10:26 | PROVIDERS: ATTEND Obstetrics & Gynecology | DX: O34.211 Maternal care for low transverse scar from previous cesarean delivery (principal) ==

== ENCOUNTER → 2020-03-07 | Outpatient (CLI) | payer OTHER | LOC: M LAB 08:43 | PROVIDERS: ATTEND Obstetrics & Gynecology | DX: O34.211 Maternal care for low transverse scar from previous cesarean delivery (principal) ==

== ENCOUNTER → 2020-03-25 | Outpatient (REF) | payer OTHER ==
[~2020-03-25] MED LIST changes: +OXYC1TAB23 PO
== END ==
LOC: M SFHCWAGY 16:44
PROVIDERS: ATTEND Obstetrics & Gynecology
DX: Z34.83 Encounter for supervision of other normal pregnancy, third trimester (principal); Z3A.36 36 weeks gestation of pregnancy

== ENCOUNTER 2020-04-01 13:50 | Inpatient (IN) | payer OTHER ==
[~2020-04-01] VITALS: Ht 162.6 cm; Wt 65.2 kg
[2020-04-01] VITALS (12 sets, daily range): BP systolic 104–133; BP diastolic 54–84
[~2020-04-01 13:50] MED LIST changes: -OXYC1TAB23 PO
[2020-04-01] MEDS ORDERED: LR 1,000 ML IV SCH ×2 (14:08→16:01)
[2020-04-01] MEDS ORDERED: LACTATED RINGER'S 1000 ML IV STA (14:08)
[2020-04-01] MEDS ORDERED: PENICILLIN G POTASSIUM IV 5 MU in D5W MINI-BAG PLUS 100 ML IV STA (14:09)
[2020-04-01] MEDS ORDERED: ceFAZolin SOD 2 GM in IV 1 EA IV ONE (14:30)
[2020-04-01] MEDS ORDERED: BICITRA 30ML SOLN UDC PO ONE (14:30)
[2020-04-01 14:42] LABS: HEMATOCRIT 33.4 % (36.0-47.0); HEMOGLOBIN 10.7 g/dl (12.0-15.5); MEAN CORPUSCULAR HEMOGLOBIN 27.3 pg (27.0-33.0); MEAN CORPUSCULAR VOLUME 85.2 fl (80.0-96.0); PLATELET COUNT, AUTOMATED 291 10^3/uL (150-450); RED BLOOD COUNT 3.92 10^6/uL (4.00-5.40); WHITE BLOOD COUNT 11.5 10^3/uL (4.0-10.0)
[2020-04-01] MEDS ORDERED: PHENYLephrine HCL 500 MCG/5 ML (100MCG/ML) SYRINGE (J2370) As Ordered ONE (14:46)
[2020-04-01] MEDS ORDERED: MORPHINE PRES-FREE INJ 10 MG/10 ML VIAL (J2274) As Ordered ONE (14:46)
[2020-04-01] MEDS ORDERED: ePHEDrine SULFATE 25 MG/5 ML(5MG/ML) SYRINGE As Ordered ONE (14:46)
[2020-04-01] MEDS ORDERED: OXYTOCIN 30 UNITS IN 0.9% NaCl 500ML IV BAG (J2590) As Ordered ONE ×2 (14:47→16:31)
--- NOTE | 2020-04-01 14:53 | HPE ---
DATE OF ADMISSION: 04/01/2020 HISTORY: She is a 24-year-old, (G) 3, para (P) 1 female, at 37-6/7 weeks gestation by last menstrual period (LMP) consistent with 7 week ultrasound, estimated date of confinement (EDC) 04/16/2020 presents with regular contractions every 5-6 minutes for the last several hours and contractions increased in intensity. She was seen in the office and noted to be 5-6 cm dilated. She denies vaginal bleeding. There is good movement. OBSTETRICAL HISTORY: 1. section for breech at 38 weeks gestation. MEDICAL HISTORY: 1. Heart murmur, no treatment. SURGICAL HISTORY: 1. [place] teeth 2014. 2. (C) section 2017. 3. Cholecystectomy 2016. ALLERGIES: NO KNOWN DRUG ALLERGIES. SOCIAL HISTORY: The patient lives in [place]. She smokes a small amount of cigarettes per day. Denies alcohol or drug use. FAMILY HISTORY: Noncontributory. PHYSICAL EXAMINATION: Blood pressure 134/74, pulse is 84. Afebrile. She appears uncomfortable. HEAD/NECK EXAM: Normal. LUNGS: Clear. HEART: Regular rate and rhythm. ABDOMEN: Nontender, gravid. heart tones category 1. CONTRACTIONS: Every 4-5 minutes. STERILE VAGINAL EXAM: 5-6 cm, intact bulging membranes, -2. EXTREMITIES: Nontender. LABS: She is GBS positive. Blood type A positive. ASSESSMENT: 24-year-old 2, para 1, at 37-6/7 weeks gestation presents in active labor. Patient has a history of prior section. The patient desires vaginal after section (). Risks of discussed. The patient is admitted on 04/01/2020.
[2020-04-01] MEDS ORDERED: ONDANSETRON 4MG/2ML VIAL IV PRN ×3 (15:05→16:30)
[2020-04-01] MEDS ORDERED: NALBUPHINE HCL 10 MG/ML AMP (J2300) IV PRN ×2 (15:05→16:30)
[2020-04-01] MEDS ORDERED: diphenhydrAMINE 50MG/ML VIAL (J1200) IV PRN (15:05)
[2020-04-01] MEDS ORDERED: METOCLOPRAMIDE INJ 10MG/2ML VIAL (J2765 PER 1) IV PRN (15:05)
[2020-04-01] MEDS ORDERED: NALOXONE INJ 0.4MG/1ML VIAL (J2310 PER 1MG) IV PRN ×2 (15:05)
[2020-04-01] MEDS ORDERED: ONDANSETRON 4MG/2ML VIAL As Ordered ONE (15:25)
[2020-04-01] MEDS ORDERED: KETOROLAC 60MG 2ML VIAL As Ordered ONE (15:25)
[2020-04-01] MEDS ORDERED: fentaNYL 100 MCG/2 ML INJECTION (J3010) As Ordered ONE (15:35)
[2020-04-01] MEDS ORDERED: MIDAZOLAM INJ 2MG/2ML VIAL (J2250 PER 1MG) As Ordered ONE (15:37)
[2020-04-01] MEDS ORDERED: propofoL 200 MG/20 ML VIAL As Ordered ONE (15:38)
[2020-04-01] MEDS ORDERED: OXYTOCIN DRIP 30 UNITS in IV 1 EA IV SCH (16:01)
[2020-04-01] MEDS ORDERED: MEASLES,MUMPS,RUBELLA VACCINE INJ (MMR-II) (90707) SC SCH (16:15)
[2020-04-01] MEDS ORDERED: PERCOCET 5MG/325MG TAB PO PRN (16:15)
[2020-04-01] MEDS ORDERED: RHOGAM 300 MCG (1500 IU) INJ (J2790) IM SCH (16:15)
[2020-04-01] MEDS ORDERED: fentaNYL 100 MCG/2 ML INJECTION (J3010) IV PRN (16:30)
[2020-04-01] MEDS ORDERED: OXYC1TAB23 PO (16:45)
[2020-04-01] MEDS ORDERED: IBUP80TA PO (16:46)
[2020-04-01] MEDS ORDERED: PENICILLIN G POTASSIUM IV 2.5 MU in IV 1 EA IV SCH (18:15)
[2020-04-01] MEDS: KETOROLAC 30 MG/ML 1ML VIAL IV SCH (21:54)
[2020-04-02 02:40] VITALS: BP 106/59
[2020-04-02] MEDS: KETOROLAC 30 MG/ML 1ML VIAL IV SCH ×2 (04:24→10:27)
[2020-04-02 06:14] VITALS: BP 111/51
[2020-04-02 07:35] LABS: HEMATOCRIT 22.3 % (36.0-47.0); MEAN CORPUSCULAR HEMOGLOBIN 27.1 pg (27.0-33.0); MEAN CORPUSCULAR HGB CONC 31.4 g/dl (32.0-36.5); MEAN CORPUSCULAR VOLUME 86.4 fl (80.0-96.0); PLATELET COUNT, AUTOMATED 201 10^3/uL (150-450); RED BLOOD COUNT 2.58 10^6/uL (4.00-5.40); WHITE BLOOD COUNT 9.9 10^3/uL (4.0-10.0)
[2020-04-02] MEDS ORDERED: BOOSTRIX/ADACEL VACCINE (DIPHTH/PERTUSS/ACELL/TETANUS) 0.5ML SYR IM ONE (09:00)
[2020-04-02] MEDS: PRENATAL VITAMINS CHEWABLE TABLET PO SCH (09:28)
[2020-04-02 10:00] VITALS: BP 121/56
[2020-04-02 14:00] VITALS: BP 111/60
[2020-04-02] MEDS: PERCOCET 5MG/325MG TAB PO PRN ×2 (14:19→22:26)
[2020-04-02 18:00] VITALS: BP 123/61
[2020-04-02] MEDS: IBUPROFEN 800 MG TAB PO SCH (18:03)
[2020-04-02 22:04] VITALS: BP 126/62
[2020-04-03 02:00] VITALS: BP 128/69
[2020-04-03] MEDS: IBUPROFEN 800 MG TAB PO SCH ×2 (02:22→10:35)
[2020-04-03 05:39] VITALS: BP 113/69
[2020-04-03] MEDS: PRENATAL VITAMINS CHEWABLE TABLET PO SCH ×2 (07:52→07:59)
[2020-04-03] MEDS: PERCOCET 5MG/325MG TAB PO PRN ×2 (08:10→15:59)
--- NOTE | 2020-04-03 12:51 | DSES ---
DATE OF ADMISSION: 04/01/2020 DATE OF DISCHARGE: 04/03/20 DISCHARGE DIAGNOSIS: Repeat section at term, postoperative day #2, stable condition. SURGEON: Dr. Myron Osorio. HISTORY: Cherie is a 24-year-old 3, para 2 now, who was admitted to labor and delivery in active labor with a history of prior section, and she desired for a repeat section. Her surgery was uncomplicated. She delivered a live female 6 pounds 13 ounces, 3080 grams, scores 9 and 9. Estimated blood loss 700 mL. Her postoperative course has been uncomplicated. She has been out of bed for self care, kiya care, infant care. Her pain has been well managed with by mouth pain medications. She is tolerating a regular diet and clear fluid. She does report voiding without difficulty and positive flatus. She does request discharge to home. OBJECTIVE: Temperature 98.7, pulse 86, respirations 18, blood pressure (BP) is 113/69. Her preoperative complete blood count (CBC) on 04/01/2020 with a hemoglobin of 10.7, hematocrit 33.4, and platelets 291. Postoperative CBC on 04/02/2020 with a hemoglobin of 7.0, hematocrit 22.3, and platelets 201. Her breasts are soft and nontender. Nipples are intact. Her abdomen with fundus firm at umbilicus. The incision has the dressing applied. It is dry and intact. There appears to be no new drainage. Her perineum is intact with lochia rubra scant. PLAN: Discharge the patient home today. She is to followup at [facility] for a 2-week incision check and an 8-week visit. Prescriptions for pain medication has been E-prescribed by Dr. Myron Osorio to the patient's pharmacy. I did review discharge instructions that include breast care, incision care, kiya care, activity and lifting restrictions, pelvic rest, access to care, and important danger signs to report to her provider. The patient has had her questions answered and desires discharge today. ANDRES
== END 2020-04-03 16:50 | disposition home or self-care (01) | DRG 540 ==
LOC: M LDI 13:50 → M OBS 17:20
PROVIDERS: ADMIT Specialist; ATTEND Specialist
PROC: 10D00Z1 Extraction of Products of Conception, Low, Open Approach (ICD-10-PCS; principal; 2020-04-01 15:01)
DX: O34.211 Maternal care for low transverse scar from previous cesarean delivery (principal); F17.210 Nicotine dependence, cigarettes, uncomplicated; Z37.0 Single live birth; Z3A.37 37 weeks gestation of pregnancy; O99.334 Smoking (tobacco) complicating childbirth

== ENCOUNTER → 2021-03-11 | Outpatient (REF) | payer OTHER ==
[~2021-03-11] MED LIST changes: +OXYC1TAB23 PO
[2021-03-11 14:27] LABS: GLUCOSE CHALLENGE TEST 1 HOUR 118 MG/DL (LESS THAN 140)
[2021-03-11 14:35] LABS: HEMATOCRIT 35.3 % (36.0-47.0); MEAN CORPUSCULAR HEMOGLOBIN 27.8 pg (27.0-33.0); MEAN CORPUSCULAR HGB CONC 31.2 g/dl (32.0-36.5); MEAN CORPUSCULAR VOLUME 89.1 fl (80.0-96.0); PLATELET COUNT, AUTOMATED 277 10^3/uL (150-450); RED BLOOD COUNT 3.96 10^6/uL (4.00-5.40); WHITE BLOOD COUNT 6.9 10^3/uL (4.0-10.0)
[2021-03-11 14:36] LABS: HEMOGLOBIN A1c 5.1 %
[2021-03-11 15:22] LABS: HEPATITIS C VIRUS ABY INDEX < 0.0 INDEX (<0.8)
[2021-03-11 15:23] LABS: HIV 1&2 SCREEN CENTAUR NEGATIVE (NEGATIVE)
[2021-03-12 11:52] LABS: CHLAMYDIA DNA AMPLIFICATION NEGATIVE (NEGATIVE); GC DNA AMPLIFICATION NEGATIVE (NEGATIVE)
== END ==
LOC: M PLALAB 10:21
PROVIDERS: ATTEND Advanced Practice Midwife
DX: Z34.91 Encounter for supervision of normal pregnancy, unspecified, first trimester (principal); Z3A.08 8 weeks gestation of pregnancy

== ENCOUNTER → 2021-05-08 | Outpatient (CLI) | payer OTHER | LOC: M PLALAB 13:25 | PROVIDERS: ATTEND Advanced Practice Midwife | DX: Z34.82 Encounter for supervision of other normal pregnancy, second trimester (principal); Z3A.00 Weeks of gestation of pregnancy not specified ==

== ENCOUNTER → 2021-05-14 | Outpatient (CLI) | payer OTHER ==
--- NOTE | 2021-05-14 16:57 | REP ---
INDICATION: ANATOMY. COMPARISON: None. TECHNIQUE: Transabdominal scanning FINDINGS: Multiple ultrasonographic images of the gravid uterus shows a single living intrauterine gestation in variable positions. Doppler interrogation of the heart shows a heart rate of 152 beats per minute. The placenta is anterior and not low lying. The cervix measures 3.2 cm in length and is closed. The subjective amniotic fluid volume is within normal limits. BPD: 4.1 cm 18 weeks 3 days AC: 15.0 cm 18 weeks 1 day AC: 12.9 cm 18 weeks 3 days FL: 2.6 cm 18 weeks 0 days The estimated weight is 230 g which is at the 60th percentile for an 18 week 0 day gestational age anatomical structures seen to be unremarkable are as follows: Thalami, cavum septum pellucidum, cerebellum, cisterna magna, cerebral ventricles, spine, urinary bladder, cord insertion, three-vessel umbilical cord, stomach, and upper lower extremities. anatomical structures suboptimally visualized are as follows: upper lip, four-chamber heart, ventricular outflow tracts, and kidneys IMPRESSION: Single living intrauterine gestation as described above with an estimated gestational age of 18 weeks 2 days via composite criteria and an estimated date of delivery of 10/13/2021 by today's exam. No anomalies were detected, however, recommend a follow-up examination to optimally visualize those structures suboptimally seen today as described above. <Electronically signed by Shahzad Lerner > 05/14/21 [id number]
== END ==
LOC: M WHC 10:40
PROVIDERS: ATTEND Advanced Practice Midwife
DX: Z34.82 Encounter for supervision of other normal pregnancy, second trimester (principal)

== ENCOUNTER → 2021-09-03 | Outpatient (CLI) | payer OTHER ==
[2021-09-03 15:28] LABS: HEMATOCRIT 29.6 % (36.0-47.0); HEMOGLOBIN 9.2 g/dl (12.0-15.5); MEAN CORPUSCULAR HEMOGLOBIN 26.9 pg (27.0-33.0); MEAN CORPUSCULAR HGB CONC 31.1 g/dl (32.0-36.5); MEAN CORPUSCULAR VOLUME 86.5 fl (80.0-96.0); PLATELET COUNT, AUTOMATED 244 10^3/uL (150-450); RED BLOOD COUNT 3.42 10^6/uL (4.00-5.40); WHITE BLOOD COUNT 9.6 10^3/uL (4.0-10.0)
[2021-09-03 16:54] LABS: GC DNA AMPLIFICATION NEGATIVE (NEGATIVE)
== END ==
LOC: M PLALAB 13:16
PROVIDERS: ATTEND Specialist
DX: Z34.82 Encounter for supervision of other normal pregnancy, second trimester (principal); Z3A.00 Weeks of gestation of pregnancy not specified

== ENCOUNTER → 2021-10-03 | Outpatient (CLI) | payer OTHER | LOC: M LABSMTC 09:30 | PROVIDERS: ATTEND Anesthesiology | DX: Z01.812 Encounter for preprocedural laboratory examination (principal); Z20.822 Contact with and (suspected) exposure to COVID-19 ==

== ENCOUNTER → 2022-06-24 | Outpatient (CLI) | payer OTHER ==
[~2022-06-24] MED LIST changes: +PERCOCET PO
[2022-06-24 14:12] LABS: HEMATOCRIT 36.2 % (36.0-47.0); HEMOGLOBIN 11.5 g/dl (12.0-15.5); MEAN CORPUSCULAR HEMOGLOBIN 27.1 pg (27.0-33.0); MEAN CORPUSCULAR HGB CONC 31.8 g/dl (32.0-36.5); MEAN CORPUSCULAR VOLUME 85.4 fl (80.0-96.0); PLATELET COUNT, AUTOMATED 314 10^3/uL (150-450); RED BLOOD COUNT 4.24 10^6/uL (4.00-5.40); WHITE BLOOD COUNT 6.8 10^3/uL (4.0-10.0)
[2022-06-24 15:50] LABS: HEPATITIS C VIRUS ABY INDEX < 0.0 INDEX (<0.8); HIV 1&2 SCREEN CENTAUR NEGATIVE (NEGATIVE)
[2022-06-24 15:57] LABS: GC DNA AMPLIFICATION NEGATIVE (NEGATIVE)
== END ==
LOC: M PLALAB 11:12
PROVIDERS: ATTEND Advanced Practice Midwife
DX: O34.211 Maternal care for low transverse scar from previous cesarean delivery (principal)

== ENCOUNTER 2022-10-15 10:16 | Inpatient (IN) | payer MEDICAID, OTHER ==
[~2022-10-15] VITALS: Ht 162.6 cm; Wt 53.9 kg
[2022-10-15] MEDS ORDERED: SERT25TA21 PO (11:18)
[2022-10-15 12:50] LABS: HEMATOCRIT 33.6 % (36.0-47.0); HEMOGLOBIN 10.2 g/dl (12.0-15.5); MEAN CORPUSCULAR HEMOGLOBIN 26.2 pg (27.0-33.0); MEAN CORPUSCULAR HGB CONC 30.4 g/dl (32.0-36.5); MEAN CORPUSCULAR VOLUME 86.2 fl (80.0-96.0); PLATELET COUNT, AUTOMATED 260 10^3/uL (150-450); WHITE BLOOD COUNT 9.2 10^3/uL (4.0-10.0)
[2022-10-15 13:00] LABS: AMPHETAMINES LEVEL URINE NEGATIVE (NEGATIVE); BARBITURATES URINE NEGATIVE (NEGATIVE); BENZODIAZEPINES URINE NEGATIVE (NEGATIVE); COCAINE METABOLITE URINE NEGATIVE (NEGATIVE); METHADONE URINE NEGATIVE (NEGATIVE); OPIATES URINE NEGATIVE (NEGATIVE); PHENCYCLIDINE URINE NEGATIVE (NEGATIVE)
[2022-10-15 13:01] LABS: CANNABINOIDS URINE POSITIVE (NEGATIVE)
[2022-10-15 13:04] LABS: RSV AMPLIFICATION NEGATIVE (NEGATIVE)
[2022-10-15 13:16] LABS: HCG, SERUM QUALITATIVE POSITIVE (NEGATIVE)
[2022-10-15 13:21] LABS: ETHYL ALCOHOL (ETHANOL) 0.006 % (0.000-0.010)
[2022-10-15 13:23] LABS: BILIRUBIN,DIRECT < 0.1 MG/DL (<0.4); SALICYLATE LEVEL < 3.0 MG/DL (<30)
[2022-10-15 13:24] LABS: ACETAMINOPHEN LEVEL < 2.0 UG/ML (10.0-20.0); ALKALINE PHOSPHATASE 112 U/L (46-116); ALT/SGPT 10 U/L (7.0-40); AST/SGOT 18 U/L (<34); BILIRUBIN,TOTAL 0.3 MG/DL (0.3-1.2); BLOOD UREA NITROGEN 5 MG/DL (9-23); CALCIUM LEVEL 8.7 MG/DL (8.5-10.1); CARBON DIOXIDE LEVEL 17 MMOL/L (20-31); CHLORIDE LEVEL 108 MMOL/L (98-107); CREATININE FOR GFR 0.44 MG/DL (0.55-1.30); GLOMERULAR FILTRATION RATE > 60.0 (>60); GLUCOSE, FASTING 72 MG/DL (60-100); POTASSIUM SERUM 4.4 MMOL/L (3.5-5.1); SODIUM LEVEL 136 MMOL/L (136-145); TOTAL PROTEIN 7.1 G/DL (5.7-8.2)
[2022-10-15] MEDS ORDERED: ONDA-83 PO (19:32)
[2022-10-15] MEDS ORDERED: HOME MED LIST COMPLETE! XX SCH (19:35)
[2022-10-16 03:31] VITALS: BP 108/56
[2022-10-16 06:23] VITALS: BP 117/63
[2022-10-16 16:14] VITALS: BP 100/62
[2022-10-17 06:45] VITALS: BP 108/67
[2022-10-17] MEDS: SERTRALINE HCL 25 MG TABLET PO SCH (11:19)
[2022-10-17 16:27] VITALS: BP 107/66
[2022-10-18 06:00] VITALS: BP 109/60
[2022-10-18] MEDS: SERTRALINE HCL 25 MG TABLET PO SCH (08:41)
== END 2022-10-18 12:53 | disposition home or self-care (01) | DRG 566 ==
LOC: M ED 10:16 → M ED INP 10-16 01:51 → M PSY 10-16 03:08
PROVIDERS: ADMIT Psychiatry & Neurology Psychiatry; ATTEND Psychiatry & Neurology Psychiatry
DX: O99.342 Other mental disorders complicating pregnancy, second trimester (principal); R45.851 Suicidal ideations; Z3A.28 28 weeks gestation of pregnancy; F32.A Depression, unspecified

== ENCOUNTER 2022-11-16 19:31 | Emergency (ER) | payer OTHER ==
[~2022-11-16] VITALS: Ht 162.6 cm; Wt 58.6 kg
[~2022-11-16 19:31] MED LIST changes: +ONDA-83 PO; +SERT25TA21 PO
[2022-11-17 01:39] VITALS: BP 120/69
== END 2022-11-17 02:00 | disposition left against medical advice (07) ==
LOC: M ED 19:31
DX: Z53.21 Procedure and treatment not carried out due to patient leaving prior to being seen by health care provider (principal)

== ENCOUNTER → 2022-12-23 | Outpatient (REF) | payer OTHER | LOC: M PLALAB 16:01 | PROVIDERS: ATTEND Specialist | DX: Z34.83 Encounter for supervision of other normal pregnancy, third trimester (principal) ==

== ENCOUNTER 2023-06-04 06:02 | Emergency (ER) | payer OTHER ==
[~2023-06-04] VITALS: Ht 162.6 cm; Wt 50.0 kg
[2023-06-04 08:55] VITALS: BP 108/56; TEMP 99.6; O2SAT 97
[2023-06-04] MEDS ORDERED: FLON1SPR NARES (08:58)
== END 2023-06-04 09:05 | disposition home or self-care (01) ==
LOC: M ED 06:02
DX: H92.21 Otorrhagia, right ear (principal); E11.9 Type 2 diabetes mellitus without complications; K21.9 Gastro-esophageal reflux disease without esophagitis; F17.200 Nicotine dependence, unspecified, uncomplicated; Z91.048 Other nonmedicinal substance allergy status; Z79.83 Long term (current) use of bisphosphonates; Z79.899 Other long term (current) drug therapy

== ENCOUNTER 2023-08-08 11:20 | Emergency (ER) | payer OTHER, SELFPAY ==
[~2023-08-08] VITALS: Ht 162.6 cm; Wt 50.7 kg
[~2023-08-08 11:20] MED LIST changes: +FLON1SPR NARES
[2023-08-08 14:56] LABS: BASO # 0.1 10^3/uL (0.0-0.2); BASO % 0.7 % (0.0-1.0); EOS # 0.1 10^3/uL (0.0-0.5); EOS % 1.6 % (0.0-3.0); HEMATOCRIT 38.1 % (36.0-47.0); HEMOGLOBIN 12.3 g/dl (12.0-15.5); LYMPH # 3.3 10^3/uL (1.5-5.0); LYMPH % 37.8 % (24.0-44.0); MEAN CORPUSCULAR HEMOGLOBIN 29.5 pg (27.0-33.0); MEAN CORPUSCULAR HGB CONC 32.3 g/dl (32.0-36.5); MEAN CORPUSCULAR VOLUME 91.4 fl (80.0-96.0); MONO # 0.3 10^3/uL (0.0-0.8); MONO % 3.3 % (2.0-8.0); NEUTROPHILS # 4.9 10^3/uL (1.5-8.5); NEUTROPHILS % 56.1 % (36.0-66.0); PLATELET COUNT, AUTOMATED 284 10^3/uL (150-450); RED BLOOD COUNT 4.17 10^6/uL (4.00-5.40); WHITE BLOOD COUNT 8.7 10^3/uL (4.0-10.0)
[2023-08-08 15:16] LABS: LIPASE 38 U/L (12-53)
[2023-08-08 15:18] LABS: ALBUMIN 3.9 G/DL (3.2-5.2); ALKALINE PHOSPHATASE 49 U/L (46-116); ALT/SGPT 14 U/L (7.0-40); AST/SGOT 11 U/L (<34); BILIRUBIN,DIRECT 0.1 MG/DL (<0.4); BILIRUBIN,TOTAL 0.4 MG/DL (0.3-1.2); BLOOD UREA NITROGEN 11 MG/DL (9-23); CALCIUM LEVEL 9.2 MG/DL (8.5-10.1); CARBON DIOXIDE LEVEL 26 MMOL/L (20-31); CHLORIDE LEVEL 106 MMOL/L (98-107); CREATININE FOR GFR 0.59 MG/DL (0.55-1.30); GLOMERULAR FILTRATION RATE > 60.0 (>60); GLUCOSE, FASTING 84 MG/DL (60-100); POTASSIUM SERUM 4.5 MMOL/L (3.5-5.1); SODIUM LEVEL 138 MMOL/L (136-145); TOTAL PROTEIN 7.3 G/DL (5.7-8.2)
[2023-08-08 15:20] LABS: CHLAMYDIA DNA AMPLIFICATION NEGATIVE (NEGATIVE); GC DNA AMPLIFICATION NEGATIVE (NEGATIVE)
[2023-08-08 16:19] LABS: HCG, SERUM QUALITATIVE NEGATIVE (NEGATIVE)
[2023-08-08 17:06] LABS: RSV AMPLIFICATION NEGATIVE (NEGATIVE)
[2023-08-08 17:30] VITALS: BP 134/65; O2SAT 100
[2023-08-08 18:07] VITALS: TEMP 98.6
== END 2023-08-08 18:10 | disposition home or self-care (01) ==
LOC: M ED 11:20
DX: R10.9 Unspecified abdominal pain (principal); F32.A Depression, unspecified; F41.9 Anxiety disorder, unspecified; Z91.048 Other nonmedicinal substance allergy status; Z91.09 Other allergy status, other than to drugs and biological substances

== ENCOUNTER → 2025-07-03 | Outpatient (CLI) | payer OTHER ==
[2025-07-03 19:24] LABS: PROLACTIN 4.15 NG/ML
[2025-07-03 19:49] LABS: HIV 1&2 SCREEN NEGATIVE (NEGATIVE)
[2025-07-03 19:57] LABS: HEPATITIS C VIRUS ABY INDEX 0.03 INDEX (<0.8)
== END ==
LOC: M WUC 13:30
PROVIDERS: ATTEND Physician Assistant Medical
DX: N92.0 Excessive and frequent menstruation with regular cycle (principal); Z11.3 Encounter for screening for infections with a predominantly sexual mode of transmission